=== PATIENT | female | born 1950 | race Caucasian/White ===

== ENCOUNTER 2020-01-11 21:13 | Emergency (ER) | payer MEDICARE ==
[~2020-01-11] VITALS: Ht 152.4 cm; Wt 45.0 kg
[~2020-01-11 21:13] MED LIST: LEVO25TA4 PO; LEVO88TA4 PO; LIOT25TA12 PO; TRAM50TA2 PO
[2020-01-11 21:28] VITALS: BP 131/64
--- NOTE | 2020-01-11 22:00 | NUR ---
PT HAD ABD SURGERY ON SAT FOR A HERNIA. PT STATES THAT AT FIRST SHE WASNT IN PAIN. BUT THE PAST 2 DAYS THE PAIN HAS BEEN UNBEARBALE ESPECIALLY WHEN SHE BEARS DOWN TO HAVE A BM. MD IS BEDSIDE FOR ASSESSMENT. BLANKETS PROVIDED.
--- NOTE | 2020-01-11 23:55 | NUR ---
PT GIVEN ENEMA, AND PROVIDED WITH BEDSIDE COMMODE. ATTEMPTING TO HAVE A BOWEL MOVEMENT AT THIS TIME. CALL LIGHT IN REACH.
--- NOTE | 2020-01-12 00:25 | NUR ---
PT GIVEN FLEETS ENEMA TO NO EFFECT. GIVEN WARM SOAPY WATER ENEMA. PT TO BEDSIDE COMMODE AT THIS TIME. CALL LIGHT IN REACH.
[2020-01-12] MEDS ORDERED: MAGNESIUM CITRATE 300ML ORAL SOL ONE (01:13)
[2020-01-12] MEDS ORDERED: MAGNESIUM CITRATE 300ML ORAL SOL PO ONE (01:30)
== END 2020-01-12 01:58 | disposition home or self-care (01) ==
LOC: ED 21:46
DX: R10.84 Generalized abdominal pain (principal); K59.00 Constipation, unspecified; R10.33 Periumbilical pain; E03.9 Hypothyroidism, unspecified
CPT/HCPCS: 74021; 99283